=== PATIENT | female | born 1980 | race Caucasian/White ===

== ENCOUNTER 2022-11-06 08:43 | Day surgery (SDC) | payer SELFPAY ==
[2022-11-06] MEDS ORDERED: Lidocaine 1% PF 5 ML VIAL ONE (08:53)
[2022-11-06] MEDS ORDERED: Sodium Bicarbonate 2.5 MEQ/5 ML VIAL ONE (08:53)
[2022-11-06 09:32] VITALS: BP 110/60; TEMP 98.8
== END 2022-11-06 11:00 | disposition home or self-care (01) ==
LOC: ULT 08:43
PROVIDERS: ATTEND Internal Medicine
PROC: 07D53ZX Extraction of Right Axillary Lymphatic, Percutaneous Approach, Diagnostic (ICD-10-PCS; principal; 2022-11-06)
DX: C77.3 Secondary and unspecified malignant neoplasm of axilla and upper limb lymph nodes (principal); C43.59 Malignant melanoma of other part of trunk; Z87.891 Personal history of nicotine dependence
CPT/HCPCS: 38505; 88305; 88341; 88342

== ENCOUNTER 2022-11-19 18:42 | Emergency (ER) | payer SELFPAY ==
[~2022-11-19 18:42] MED LIST: Iopamidol-370 76% 500 ML 1 ML ONE
[2022-11-19 19:19] LABS: #Eosinphils 0.2 thou/uL (0.0-0.7); #Lymphocytes 1.7 thou/uL (1.20-3.40); #Monocytes 0.7 thou/uL (0.11-0.59); #Neutrophils 7.6 thou/uL (1.40-6.50); %Basophils 0.1 % (0.0-1.0); %Eosinophils 1.8 % (0.0-10.0); %Lymphocytes 16.5 % (21.0-51.0); %Monocytes 6.9 % (0.0-10.0); %Neutrophils 74.6 % (42.0-75.0); Mean Corpuscular HGB CONC 32.7 g/dL (32.0-36.0); Mean Corpuscular Hemoglobin 26.3 pg (27.0-31.0); Mean Corpuscular Volume 80.6 fl (78.0-98.0); Mean Platelet Volume 6.6 fL (7.4-10.4); Platelet Count 541 10x3/uL (130-400); RBC Distribution Width 12.3 % (11.5-14.5); Red Blood Cell (RBC) Count 3.81 mill/uL (4.20-5.40); White Blood Cell (WBC) Count 10.1 10x3/uL (4.8-10.8)
[2022-11-19 19:29] LABS: BHCG - Serum Negative (NEGATIVE); Pregs Control Background? CLEAR/WHITE (CLR/WHITE); Pregs Control Bar Appear? YES (CONTROL BAR)
[2022-11-19 19:41] LABS: ALT (SGPT) 20 U/L (8-55); AST (SGOT) 22 U/L (5-34); Albumin 3.9 g/dL (3.5-5.0); Alkaline Phosphatase 66 U/L (40-110); Anion Gap 15 mmol/L (10-20); BUN (Urea Nitrogen) 9 mg/dL (7.0-18.7); Bilirubin, Total 0.2 mg/dL (0.2-1.2); Calc. Creatinine Clearance 0 mL/min (70-130); Calcium 9.3 mg/dL (7.8-10.44); Carbon Dioxide 21 mmol/L (22-29); Chloride 105 mmol/L (98-107); Estimated GFR 105; Globulin 3.7 g/dL (2.4-3.5); Glucose 100 mg/dL (70-105); Lipase 71 U/L (8-78); Potassium 3.8 mmol/L (3.5-5.1); Protein, Total 7.6 g/dL (6.0-8.3); Sodium 137 mmol/L (136-145)
[2022-11-19 20:48] LABS: Bacteria/HPF None Seen HPF (None Seen); Bilirubin Negative (Negative); Blood, Urine 3+ (Negative); Clarity Clear (Clear); Glucose, Urine (Dipstick) Normal (Negative); Ketone, Urine Negative (Negative); Leukocyte Negative Leu/uL (Negative); Nitrite Negative (Negative); Protein, Urine (Dipstick) Negative (Neg-Trace); Specific Gravity, Urine 1.008 (1.002-1.036); Squamous Epithelial 0-3 HPF (0-3); Urobilinogen Normal mg/dL (Less than 2); WBC/HPF 0-3 HPF (0-3)
[2022-11-19] MEDS ORDERED: Morphine 4 MG/ML VIAL ONE ×2 (21:10→22:13)
[2022-11-19] MEDS ORDERED: Ondansetron PF 4 MG/2 ML Vial ONE ×2 (21:11→22:13)
== END 2022-11-19 22:44 | disposition home or self-care (01) ==
LOC: ERS 18:42
DX: M54.9 Dorsalgia, unspecified (principal)
CPT/HCPCS: 36415; 71275; 74177; 80053; 81003; 81015; 83690; 84703; 85025; 96374; 96375; 96376; J2270; J2405; Q9967

== ENCOUNTER → 2022-11-23 | Outpatient (CLI) | payer OTHER | LOC: PET 08:00 | PROVIDERS: ATTEND Internal Medicine | DX: C43.59 Malignant melanoma of other part of trunk (principal); C79.89 Secondary malignant neoplasm of other specified sites | CPT/HCPCS: 78816; A9552 ==

== ENCOUNTER 2022-12-27 06:52 | Outpatient (CLI) | payer MEDICAID | END 2022-12-27 06:53 | disposition home or self-care (01) | LOC: BICULT 06:52 | PROVIDERS: ATTEND Internal Medicine | DX: R60.0 Localized edema (principal); C43.59 Malignant melanoma of other part of trunk ==

== ENCOUNTER 2023-01-01 14:38 | Outpatient (CLI) | payer MEDICAID | END 2023-01-01 14:39 | disposition home or self-care (01) | LOC: SCSMRI 14:38 | PROVIDERS: ATTEND Internal Medicine | DX: C43.9 Malignant melanoma of skin, unspecified (principal); R41.0 Disorientation, unspecified; D49.6 Neoplasm of unspecified behavior of brain; G93.6 Cerebral edema; J32.9 Chronic sinusitis, unspecified | CPT/HCPCS: 70553 ==

== ENCOUNTER 2023-01-18 11:59 | Outpatient (CLI) | payer MEDICAID ==
[2023-01-18 13:35] LABS: #Monocytes 0.5 10x3/uL (0.0-1.1); #Neutrophils 11.7 10x3/uL (1.5-8.4); %Basophils 0.1 % (0.0-2.0); %Eosinophils 0.1 % (0.0-6.0); %Lymphocytes 9.2 % (18.0-47.0); %Monocytes 3.8 % (0.0-10.0); Hemoglobin 8.9 g/dL (12.0-15.5); Mean Corpuscular Hemoglobin 20.9 pg (27.0-33.0); Mean Corpuscular Volume 72.2 fl (81.6-98.3); Mean Platelet Volume 9.2 fl (7.4-10.4); Platelet Count 527 10x3/uL (150-450); RBC Distribution Width 15.2 % (11.5-14.5); Red Blood Cell (RBC) Count 4.25 10x6/uL (3.90-5.03); White Blood Cell (WBC) Count 13.6 10x3/uL (3.5-10.5)
[2023-01-18 13:55] LABS: Basophilic Stippling SLIGHT = 1-2 cells (100X) (None Seen); Hypochromia MARKED = >30 cells (100X) (0-5/hpf); Microcytosis SLIGHT = 6-15 cells (100X) (0-5/hpf)
[2023-01-18 13:56] LABS: Ovalocytes SLIGHT = 2-5 cells (100X) (0-1/hpf); Target Cells SLIGHT = 2-5 cells (100X) (0-1/hpf)
[2023-01-18 13:57] LABS: Platelet Clumps SLIGHT; Platelet Morphology Comment Appears Increased
[2023-01-18 13:58] LABS: Macrocytosis SLIGHT = 6-15 cells (100X) (0-5/hpf)
[2023-01-18 14:07] LABS: Anion Gap 16 mmol/L (10-20); BUN (Urea Nitrogen) 18 mg/dL (7.0-18.7); Calc. Creatinine Clearance 0 mL/min (70-130); Calcium 9.4 mg/dL (7.8-10.44); Carbon Dioxide 20 mmol/L (22-29); Chloride 104 mmol/L (98-107); Estimated GFR 100; Glucose 128 mg/dL (70-105); Potassium 4.4 mmol/L (3.5-5.1); Sodium 136 mmol/L (136-145)
== END 2023-01-18 12:00 | disposition home or self-care (01) ==
LOC: LABBT 11:59
PROVIDERS: ATTEND Specialist
DX: Z01.812 Encounter for preprocedural laboratory examination (principal); C43.9 Malignant melanoma of skin, unspecified
CPT/HCPCS: 80048; 85025

== ENCOUNTER 2023-01-22 06:27 | Day surgery (SDC) | payer MEDICAID ==
[2023-01-18 11:24] VITALS: BMI 31.5
[2023-01-22] MEDS ORDERED: Acetaminophen 500 MG TAB ONE (07:16)
[2023-01-22] MEDS ORDERED: Ketorolac Tromethamine 30 MG/ML VIAL ONE (07:16)
[2023-01-22] MEDS ORDERED: fentaNYL PF 100 MCG/2 ML SYRINGE ONE (08:09)
[2023-01-22] MEDS ORDERED: Lidocaine 1% (PF) 30 ML VIAL ONE (08:11)
[2023-01-22] MEDS ORDERED: Bupivacaine/Epinephrine 0.25% 30 ML VIAL ONE (08:11)
[2023-01-22] MEDS ORDERED: Propofol 500 MG/50 ML VIAL ONE (08:12)
[2023-01-22] MEDS ORDERED: Lidocaine 2% 6 ML SYR ONE (08:22)
[2023-01-22] MEDS ORDERED: Sodium Chloride 0.9% 100 ML ONE (08:31)
[2023-01-22] MEDS ORDERED: CEFAZOLIN 2 GM VIAL ONE (08:31)
[2023-01-22] MEDS ORDERED: PROPOFOL 200 MG/20 ML VIAL ONE (08:33)
== END 2023-01-22 10:06 | disposition home or self-care (01) ==
LOC: SDC 06:27
PROVIDERS: ATTEND Specialist
PROC: 0JH60WZ Insertion of Totally Implantable Vascular Access Device into Chest Subcutaneous Tissue and Fascia, Open Approach (ICD-10-PCS; principal; 2023-01-22)
PROC: 02HV33Z Insertion of Infusion Device into Superior Vena Cava, Percutaneous Approach (ICD-10-PCS; principal; 2023-01-22)
DX: C43.59 Malignant melanoma of other part of trunk (principal); C79.31 Secondary malignant neoplasm of brain; Z79.899 Other long term (current) drug therapy; Z88.5 Allergy status to narcotic agent
CPT/HCPCS: 36416; 71045; J1642; J1885; J2001; J2704; J3490

== ENCOUNTER → 2023-02-13 | Outpatient (CLI) | payer MEDICAID | LOC: PET 11:00 | PROVIDERS: ATTEND Internal Medicine | DX: C43.59 Malignant melanoma of other part of trunk (principal); C79.51 Secondary malignant neoplasm of bone | CPT/HCPCS: 78816; A9552 ==

== ENCOUNTER 2023-03-01 17:45 | Inpatient (IN) | payer MEDICAID, OTHER ==
[2023-03-01] MEDS ORDERED: Ondansetron PF 4 MG/2 ML Vial ONE (19:10)
[2023-03-01] MEDS ORDERED: Ondansetron ODT 4 MG TAB ONE (19:32)
[2023-03-01 20:10] LABS: Bilirubin Negative (Negative); Blood, Urine Negative (Negative); Clarity Clear (Clear); Glucose, Urine (Dipstick) Normal (Negative); Ketone, Urine Negative (Negative); Leukocyte Negative Leu/uL (Negative); Nitrite Negative (Negative); Protein, Urine (Dipstick) Negative (Neg-Trace); Specific Gravity, Urine 1.006 (1.002-1.036); Urobilinogen Normal mg/dL (Less than 2); pH, Urine 6.5 (5.0-9.0)
[2023-03-01 20:11] LABS: Specific Gravity 1.006 (1.002-1.036)
[2023-03-01 20:12] LABS: Pregnancy Test - Urine (BHCG) Negative (Negative); Pregu Control Background? CLEAR/WHITE (CLR/WHITE); Pregu Control Bar Appear? YES (CONTROL BAR)
[2023-03-01 20:31] LABS: Actual Bicarbonate (HCO3v) 24 mEq/L (22-28); Base Excess 0.8 mEq/L (-2.0 to +3.0); Calcium, Ionized (venous) 1.07 mmol/L (1.16-1.32); Chloride (VBG) 104 mmol/L (98-106); Hemoglobin (Hb) 11.1 g/dL (11.7-15.5); Sodium 138.1 mmol/L (133-146); pH (venous) 7.48 (7.32-7.43)
[2023-03-01 20:32] LABS: #Eosinphils 0.1 thou/uL (0.0-0.7); #Lymphocytes 1.7 thou/uL (1.20-3.40); #Monocytes 0.7 thou/uL (0.11-0.59); #Neutrophils 7.3 thou/uL (1.40-6.50); %Basophils 0.1 % (0.0-1.0); %Eosinophils 0.6 % (0.0-10.0); %Lymphocytes 17.7 % (21.0-51.0); %Monocytes 7.3 % (0.0-10.0); %Neutrophils 74.3 % (42.0-75.0); Hemoglobin 10.2 g/dL (12.0-16.0); Mean Corpuscular HGB CONC 30.7 g/dL (32.0-36.0); Mean Corpuscular Hemoglobin 20.9 pg (27.0-31.0); Mean Corpuscular Volume 68.2 fl (78.0-98.0); Mean Platelet Volume 9.7 fL (7.4-10.4); Platelet Count 243 10x3/uL (130-400); RBC Distribution Width 16.3 % (11.5-14.5); Red Blood Cell (RBC) Count 4.87 mill/uL (4.20-5.40); White Blood Cell (WBC) Count 9.9 10x3/uL (4.8-10.8)
[2023-03-01 20:46] LABS: INR-International Normal Ratio 1.1; Prothrombin Time 14.5 sec (12.0-14.7)
[2023-03-01 21:03] LABS: AST (SGOT) 1602 U/L (5-34); Albumin 3.7 g/dL (3.5-5.0); Alkaline Phosphatase 144 U/L (40-110); Anion Gap 14 mmol/L (10-20); BUN (Urea Nitrogen) 9 mg/dL (7.0-18.7); Bilirubin, Total 0.9 mg/dL (0.2-1.2); Calc. Creatinine Clearance 0 mL/min (70-130); Calcium 8.5 mg/dL (7.8-10.44); Carbon Dioxide 21 mmol/L (22-29); Chloride 106 mmol/L (98-107); Estimated GFR 111; Glucose 78 mg/dL (70-105); Lipase 48 U/L (8-78); Potassium 3.5 mmol/L (3.5-5.1); Protein, Total 6.7 g/dL (6.0-8.3); Sodium 137 mmol/L (136-145)
[2023-03-01 21:15] LABS: ALT (SGPT) 3900 U/L (8-55)
[2023-03-01] MEDS ORDERED: predniSONE 20 MG TAB ONE (23:09)
[2023-03-02] MEDS ORDERED: Ondansetron ODT 4 MG TAB SL PRN (00:30)
[2023-03-02] MEDS ORDERED: Ondansetron PF 4 MG/2 ML Vial IVP PRN (00:30)
[2023-03-02] MEDS: Sodium Chloride 0.9% 1,000 ML IV SCH ×2 (00:33→06:17)
[2023-03-02 01:18] VITALS: BMI 32.7
[2023-03-02] MEDS: Morphine 2 MG/ML VIAL SLOW IVP PRN ×4 (01:49→20:09)
[2023-03-02 06:24] LABS: #Lymphocytes 1.1 thou/uL (1.20-3.40); #Monocytes 0.3 thou/uL (0.11-0.59); #Neutrophils 8.6 thou/uL (1.40-6.50); %Eosinophils 0.3 % (0.0-10.0); %Lymphocytes 11.4 % (21.0-51.0); %Neutrophils 85.4 % (42.0-75.0); Hemoglobin 10.5 g/dL (12.0-16.0); Mean Corpuscular HGB CONC 31.2 g/dL (32.0-36.0); Mean Corpuscular Hemoglobin 21.6 pg (27.0-31.0); Mean Corpuscular Volume 69.3 fl (78.0-98.0); Mean Platelet Volume 9.5 fL (7.4-10.4); Platelet Count 245 10x3/uL (130-400); RBC Distribution Width 16.4 % (11.5-14.5); Red Blood Cell (RBC) Count 4.84 mill/uL (4.20-5.40)
[2023-03-02 07:04] LABS: AST (SGOT) 1469 U/L (5-34); Albumin 3.5 g/dL (3.5-5.0); Alkaline Phosphatase 164 U/L (40-110); Anion Gap 16 mmol/L (10-20); BUN (Urea Nitrogen) 10 mg/dL (7.0-18.7); Bilirubin, Total 1.3 mg/dL (0.2-1.2); Calc. Creatinine Clearance 123 mL/min (70-130); Calcium 8.5 mg/dL (7.8-10.44); Carbon Dioxide 17 mmol/L (22-29); Chloride 107 mmol/L (98-107); Estimated GFR 105; Globulin 3.1 g/dL (2.4-3.5); Glucose 179 mg/dL (70-105); Protein, Total 6.6 g/dL (6.0-8.3); Sodium 136 mmol/L (136-145)
[2023-03-02 07:18] LABS: ALT (SGPT) 3986 U/L (8-55)
[2023-03-02] MEDS: predniSONE 20 MG TAB PO SCH (09:17)
[2023-03-02] MEDS ORDERED: Iopamidol-370 76% 500 ML MDV (1 ML CHARGE) ONE (12:35)
[2023-03-02 19:28] LABS: Acetaminophen Less than 10.0 mcg/mL (10.0-30.0); Iron 25 ug/dL (50-170); Iron Binding Capacity, Total 411 mcg/dL (265-497)
[2023-03-02 19:42] LABS: Ferritin 83.92 ng/mL (10-291)
[2023-03-02 19:43] LABS: Thyroid Stimulating Hormone 0.2296 uIU/mL (0.35-4.94)
[2023-03-02 19:57] LABS: HBCM Index 0.15 S/CO (0-0.79); HBSAg Index 0.26 S/CO (0-0.99); Hep A IgM AB Non-Reactive (NonReactive); Hep A IgM S/CO 0.18 S/CO (0-0.79); Hep B Surf Ag Non-Reactive S/CO (NonReactive); Hep C IgG Ab Non-Reactive (NonReactive); Hep C Index 0.17 S/CO (0-0.79); Hepatitis B Core IgM Abs Non-Reactive (NonReactive)
[2023-03-03] MEDS ORDERED: Ondansetron PF 4 MG/2 ML Vial IVP PRN (00:35)
[2023-03-03] MEDS ORDERED: Ondansetron ODT 4 MG TAB PO PRN (00:35)
[2023-03-03 06:04] LABS: #Eosinphils 0.1 thou/uL (0.0-0.7); #Lymphocytes 2.7 thou/uL (1.20-3.40); #Monocytes 1.2 thou/uL (0.11-0.59); #Neutrophils 12.4 thou/uL (1.40-6.50); %Basophils 0.1 % (0.0-1.0); %Eosinophils 0.6 % (0.0-10.0); %Lymphocytes 16.5 % (21.0-51.0); %Monocytes 7.5 % (0.0-10.0); %Neutrophils 75.3 % (42.0-75.0); Hemoglobin 10.4 g/dL (12.0-16.0); Mean Corpuscular HGB CONC 30.6 g/dL (32.0-36.0); Mean Corpuscular Hemoglobin 21.4 pg (27.0-31.0); Mean Corpuscular Volume 69.8 fl (78.0-98.0); Mean Platelet Volume 9.7 fL (7.4-10.4); Platelet Count 269 10x3/uL (130-400); RBC Distribution Width 16.5 % (11.5-14.5); Red Blood Cell (RBC) Count 4.87 mill/uL (4.20-5.40); White Blood Cell (WBC) Count 16.5 10x3/uL (4.8-10.8)
[2023-03-03 06:24] LABS: ALT (SGPT) 3174 U/L (8-55); AST (SGOT) 711 U/L (5-34); Albumin 3.5 g/dL (3.5-5.0); Alkaline Phosphatase 174 U/L (40-110); Anion Gap 13 mmol/L (10-20); BUN (Urea Nitrogen) 12 mg/dL (7.0-18.7); Bilirubin, Total 0.8 mg/dL (0.2-1.2); Calc. Creatinine Clearance 138 mL/min (70-130); Calcium 8.8 mg/dL (7.8-10.44); Carbon Dioxide 22 mmol/L (22-29); Chloride 106 mmol/L (98-107); Estimated GFR 112; Globulin 2.9 g/dL (2.4-3.5); Glucose 107 mg/dL (70-105); Potassium 3.5 mmol/L (3.5-5.1); Protein, Total 6.4 g/dL (6.0-8.3); Sodium 137 mmol/L (136-145)
[2023-03-03] MEDS: Morphine 2 MG/ML VIAL SLOW IVP PRN ×3 (10:02→21:58)
[2023-03-03] MEDS: predniSONE 20 MG TAB PO SCH (10:02)
[2023-03-03 17:56] LABS: ANA Symphony (Qualitative) Equivocal: See Note (Negative); ANA Symphony (Quantitative) 0.7 Ratio (< 0.7 Negative); dsDNA IgG Antibody 1.2 IU/mL (<10 Negative)
[2023-03-04] MEDS: Morphine 2 MG/ML VIAL SLOW IVP PRN ×2 (04:46→09:18)
[2023-03-04 05:40] LABS: #Eosinphils 0.1 thou/uL (0.0-0.7); #Lymphocytes 2.5 thou/uL (1.20-3.40); %Basophils 0.1 % (0.0-1.0); %Eosinophils 0.6 % (0.0-10.0); %Lymphocytes 18.6 % (21.0-51.0); %Monocytes 7.3 % (0.0-10.0); %Neutrophils 73.4 % (42.0-75.0); Hemoglobin 10.1 g/dL (12.0-16.0); Mean Corpuscular HGB CONC 30.2 g/dL (32.0-36.0); Mean Corpuscular Volume 69.6 fl (78.0-98.0); Mean Platelet Volume 9.5 fL (7.4-10.4); Platelet Count 304 10x3/uL (130-400); RBC Distribution Width 16.9 % (11.5-14.5); Red Blood Cell (RBC) Count 4.78 mill/uL (4.20-5.40); White Blood Cell (WBC) Count 13.6 10x3/uL (4.8-10.8)
[2023-03-04 06:02] LABS: ALT (SGPT) 2526 U/L (8-55); AST (SGOT) 518 U/L (5-34); Albumin 3.4 g/dL (3.5-5.0); Alkaline Phosphatase 183 U/L (40-110); Anion Gap 12 mmol/L (10-20); BUN (Urea Nitrogen) 9 mg/dL (7.0-18.7); Bilirubin, Total 0.8 mg/dL (0.2-1.2); Calc. Creatinine Clearance 138 mL/min (70-130); Calcium 8.4 mg/dL (7.8-10.44); Carbon Dioxide 23 mmol/L (22-29); Chloride 104 mmol/L (98-107); Estimated GFR 112; Globulin 2.9 g/dL (2.4-3.5); Glucose 128 mg/dL (70-105); Potassium 3.4 mmol/L (3.5-5.1); Protein, Total 6.3 g/dL (6.0-8.3); Sodium 136 mmol/L (136-145)
[2023-03-04] MEDS: predniSONE 20 MG TAB PO SCH (09:17)
[2023-03-04 14:54] VITALS: BP 128/77; TEMP 98.4
[2023-03-05 10:17] LABS: Alpha-1-Antitrypsin 162 mg/dL (101-187)
[2023-03-05 16:14] LABS: Smooth Muscle Total ABS 12 Units (0-19)
== END 2023-03-04 17:02 | disposition home or self-care (01) | DRG 442 ==
LOC: ERS 17:45 → MSONC 23:24 → INTOOBSV 23:24 → OBSVTOIN 03-03 12:42
PROVIDERS: ADMIT Internal Medicine; ATTEND Internal Medicine
DX: K75.4 Autoimmune hepatitis (principal); C79.31 Secondary malignant neoplasm of brain; C43.9 Malignant melanoma of skin, unspecified; T50.Z95A Adverse effect of other vaccines and biological substances, initial encounter; D72.829 Elevated white blood cell count, unspecified; Z88.8 Allergy status to other drugs, medicaments and biological substances; Z79.899 Other long term (current) drug therapy
CPT/HCPCS: 36415; 74177; 76705; 80053; 80074; 80143; 81003; 81025; 82103; 82728; 82805; 83540; 83550; 83690; 84439; 84443; 85025; 85610; 85730; 86015; 86038; 86225; 93005; 96374; 96375; 96376; 80307; G0378; J1642; J2272; J2405; J7050; J7512; Q0162; Q9967

== ENCOUNTER 2023-04-02 11:27 | Outpatient (CLI) | payer MEDICAID, OTHER, SELFPAY ==
[~2023-04-02 11:27] MED LIST changes: -Iopamidol-370 76% 500 ML 1 ML ONE; +Magnevist 469MG/ML 20 ML VIAL ONE
== END 2023-04-02 11:28 | disposition home or self-care (01) ==
LOC: TBSIIMAG 11:27
PROVIDERS: ATTEND Radiology Radiation Oncology
DX: Z51.0 Encounter for antineoplastic radiation therapy (principal); C79.31 Secondary malignant neoplasm of brain
CPT/HCPCS: 70553; A9579

== ENCOUNTER 2023-05-22 12:31 | Outpatient (CLI) | payer OTHER | END 2023-05-22 12:32 | disposition home or self-care (01) | LOC: ULT 12:31 | PROVIDERS: ATTEND Internal Medicine | DX: Z51.11 Encounter for antineoplastic chemotherapy (principal); C43.59 Malignant melanoma of other part of trunk; I07.1 Rheumatic tricuspid insufficiency; Z79.899 Other long term (current) drug therapy | CPT/HCPCS: 93306 ==

== ENCOUNTER 2023-06-18 09:40 | Outpatient (CLI) | payer OTHER ==
[2023-06-18] MEDS ORDERED: Magnevist 469MG/ML 20 ML VIAL ONE (10:45)
== END 2023-06-18 09:41 | disposition home or self-care (01) ==
LOC: MRI 09:40
PROVIDERS: ATTEND Radiology Radiation Oncology
DX: C79.31 Secondary malignant neoplasm of brain (principal); G93.89 Other specified disorders of brain
CPT/HCPCS: 70553; A9579

== ENCOUNTER 2023-06-19 13:29 | Outpatient (CLI) | payer OTHER | END 2023-06-19 13:30 | disposition home or self-care (01) | LOC: ULT 13:29 | PROVIDERS: ATTEND Internal Medicine | DX: Z51.11 Encounter for antineoplastic chemotherapy (principal); C43.59 Malignant melanoma of other part of trunk; I08.1 Rheumatic disorders of both mitral and tricuspid valves; Z79.899 Other long term (current) drug therapy | CPT/HCPCS: 93306 ==

== ENCOUNTER 2023-07-24 08:07 | Outpatient (CLI) | payer OTHER ==
[2023-07-24] MEDS ORDERED: Iopamidol 370 76% 100 ML VIAL ONE (09:51)
== END 2023-07-24 08:08 | disposition home or self-care (01) ==
LOC: CT 08:07
PROVIDERS: ATTEND Internal Medicine
DX: C43.59 Malignant melanoma of other part of trunk (principal); C78.02 Secondary malignant neoplasm of left lung; C79.51 Secondary malignant neoplasm of bone; M89.9 Disorder of bone, unspecified
CPT/HCPCS: 71260; 74177; Q9967

== ENCOUNTER 2023-10-16 12:20 | Outpatient (CLI) | payer OTHER ==
[~2023-10-16 12:20] MED LIST changes: +Iopamidol 370 76% 100 ML VIAL ONE; -Magnevist 469MG/ML 20 ML VIAL ONE
== END 2023-10-16 12:21 | disposition home or self-care (01) ==
LOC: CT 12:20
PROVIDERS: ATTEND Internal Medicine
DX: C43.59 Malignant melanoma of other part of trunk (principal); R91.1 Solitary pulmonary nodule; K76.89 Other specified diseases of liver; E27.8 Other specified disorders of adrenal gland; M89.9 Disorder of bone, unspecified
CPT/HCPCS: 71260; 74177

== ENCOUNTER 2023-10-28 09:27 | Outpatient (CLI) | payer OTHER | END 2023-10-28 09:28 | disposition home or self-care (01) | LOC: SCSMRI 09:27 | PROVIDERS: ATTEND Radiology Radiation Oncology | DX: C79.31 Secondary malignant neoplasm of brain (principal); J32.9 Chronic sinusitis, unspecified | CPT/HCPCS: 70553 ==

== ENCOUNTER 2024-02-05 12:49 | Outpatient (CLI) | payer OTHER ==
[2024-02-05 14:48] LABS: Hematocrit 42.4 % (34.9-44.5); Hemoglobin 14.5 g/dL (12.0-15.5); Mean Corpuscular HGB CONC 34.2 g/dL (32.0-36.0); Mean Corpuscular Hemoglobin 29.7 pg (27.0-33.0); Mean Corpuscular Volume 86.7 fl (81.6-98.3); Mean Platelet Volume 9.3 fl (7.4-10.4); Platelet Count 305 10x3/uL (150-450); RBC Distribution Width 12.3 % (11.5-14.5); Red Blood Cell (RBC) Count 4.89 10x6/uL (3.90-5.03); White Blood Cell (WBC) Count 7.5 10x3/uL (3.5-10.5)
[2024-02-05 14:51] LABS: BHCG - Serum Negative (NEGATIVE); INR-International Normal Ratio 0.9; PTT 29.1 sec (22.0-33.0); Pregs Control Background? CLEAR/WHITE (CLR/WHITE); Pregs Control Bar Appear? YES (CONTROL BAR); Prothrombin Time 9.8 sec (9.5-12.1)
[2024-02-05 14:58] LABS: ALT (SGPT) 19 U/L (8-55); AST (SGOT) 17 U/L (5-34); Albumin 4.7 g/dL (3.5-5.0); Alkaline Phosphatase 71 U/L (40-110); Anion Gap 12 mmol/L (10-20); BUN (Urea Nitrogen) 10 mg/dL (7.0-18.7); Bilirubin, Direct 0.1 mg/dL (0.1-0.3); Bilirubin, Total 0.2 mg/dL (0.2-1.2); Calc. Creatinine Clearance 0 mL/min (70-130); Calcium 9.7 mg/dL (7.8-10.44); Carbon Dioxide 24 mmol/L (22-29); Chloride 108 mmol/L (98-107); Estimated GFR 97; Glucose 101 mg/dL (70-105); Potassium 3.9 mmol/L (3.5-5.1); Protein, Total 7.6 g/dL (6.0-8.3); Sodium 140 mmol/L (136-145)
== END 2024-02-05 12:50 | disposition home or self-care (01) ==
LOC: LABBT 12:49
PROVIDERS: ATTEND Student in an Organized Health Care Education/Training Program
DX: Z01.812 Encounter for preprocedural laboratory examination (principal); C78.02 Secondary malignant neoplasm of left lung
CPT/HCPCS: 80048; 80076; 84703; 85027; 85610; 85730

== ENCOUNTER 2025-06-11 14:00 | Inpatient (IN) | payer MEDICAID ==
[2025-06-14 16:38] VITALS: BMI 37.4
[2025-06-17] MEDS ORDERED: Ropivacaine 0.2% HCl/PF 20 ML ONE (08:32)
[2025-06-17] MEDS ORDERED: Ropivacaine 0.5% HCl/PF (150 MG/30 ML VIAL) ONE (08:32)
[2025-06-17] MEDS ORDERED: Ondansetron PF 4 MG/2 ML Vial ONE ×2 (08:32→10:35)
[2025-06-17] MEDS ORDERED: CEFAZOLIN 2 GM VIAL ONE (09:12)
[2025-06-17] MEDS ORDERED: PROPOFOL 20 ML ONE (09:26)
[2025-06-17] MEDS ORDERED: fentaNYL PF 100 MCG/2 ML SYRINGE ONE ×4 (09:26→13:01)
[2025-06-17] MEDS ORDERED: PHENYLEPHRINE-NS 100 MCG/ML 10 ML SYRINGE ONE (09:53)
[2025-06-17] MEDS ORDERED: Rocuronium Bromide 10 MG/ML (10ML VIAL) ONE (10:09)
[2025-06-17] MEDS ORDERED: Glycopyrrolate 0.2 MG/ML 5 ML SYRINGE ONE (10:57)
[2025-06-17] MEDS ORDERED: NEOSTIGMINE 3 MG/3 ML SYRINGE ONE (10:57)
[2025-06-17] MEDS ORDERED: Bisacodyl 10 MG SUPP PR PRN (11:31)
[2025-06-17] MEDS ORDERED: Ondansetron PF 4 MG/2 ML Vial SLOW IVP PRN (11:31)
[2025-06-17] MEDS ORDERED: DIFLUPREDNATE L EYE SCH (11:31)
[2025-06-17] MEDS ORDERED: PREDNISOLONE 5 MG PO PRN (11:31)
[2025-06-17] MEDS ORDERED: DIFLUPREDNATE R EYE SCH ×2 (11:31→21:00)
[2025-06-17] MEDS ORDERED: Communication Order-Pharmacy FS SCH (11:31)
[2025-06-17] MEDS ORDERED: FLUTICASONE PROPIONATE NS SCH (11:31)
[2025-06-17] MEDS ORDERED: Non-Formulary Item 1 EACH (Oxycodone Hcl/Acetaminophen [Oxycodone-Acetaminophen 10-325] 1 PO PRN (11:31)
[2025-06-17] MEDS ORDERED: Non-Formulary Item 1 EACH (Fentanyl [Fentanyl] 1 EACH Patch.Td72) TD SCH (11:31)
[2025-06-17] MEDS ORDERED: Non-Formulary Item 1 EACH (Zolpidem Tartrate [Ambien] 10 MG Tablet) PO PRN (11:31)
[2025-06-17] MEDS ORDERED: Ketorolac Tromethamine 30 MG (1 mL) VIAL ONE (11:54)
[2025-06-17] MEDS ORDERED: prednisoLONE 10 MG ODT TAB PO PRN (12:31)
[2025-06-17] MEDS ORDERED: Apixaban 2.5 MG TAB PO SCH ×2 (14:30→21:00)
[2025-06-17] MEDS: AFRIN NASAL MIST 15 ML BOT NS SCH (17:03)
[2025-06-17] MEDS: oxyCODONE/Acetaminophen 5 mg/325 mg Tablet PO PRN (17:26)
[2025-06-17] MEDS: Ketorolac Tromethamine 30 MG (1 mL) VIAL IVP SCH (17:26)
[2025-06-17] MEDS: Pantoprazole 40 MG DR.TAB PO SCH (17:28)
[2025-06-17] MEDS: DORZOLAMIDE OP SCH (18:31)
[2025-06-17] MEDS: TIMOLOL OP SCH (18:31)
[2025-06-17] MEDS: Apixaban 2.5 MG TAB PO SCH (18:31)
[2025-06-17] MEDS: [UNRECOGNIZED DRUG - OTHER] OP SCH (18:31)
[2025-06-17] MEDS: DorzolamidE/Timolol 2%/0.5% Ophth Soln 10 ml Bottle EA EYE SCH (21:42)
[2025-06-18 05:50] LABS: #Basophils Less than 0.03 10x3/uL (0.0-0.2); #Eosinophils 0.10 10x3/uL (0.0-0.7); #Monocytes 1.19 10x3/uL (0.11-0.59); #Neutrophils 7.97 10x3/uL (1.40-6.50); %Basophils 0.2 % (0.0-1.0); %Eosinophils 0.9 % (0.0-10.0); %Lymphocytes 14.9 % (21.0-51.0); %Monocytes 10.9 % (0.0-10.0); %Neutrophils 72.6 % (42.0-75.0); Hematocrit 24.8 % (36.0-47.0); Hemoglobin 7.9 g/dL (12.0-16.0); Mean Corpuscular Hemoglobin 27.3 pg (27.0-31.0); Mean Corpuscular Volume 85.8 fL (78.0-98.0); Platelet Count 290 10x3/uL (130-400); Red Blood Cell (RBC) Count 2.89 mill/uL (4.20-5.40); White Blood Cell (WBC) Count 10.96 10x3/uL (4.8-10.8)
[2025-06-18 06:08] LABS: ALT (SGPT) 10 U/L (Less than 34); AST (SGOT) 14 U/L (11-34); Albumin 2.9 g/dL (3.1-4.5); Alkaline Phosphatase 56 U/L (40-110); Anion Gap 10 mmol/L (10-20); BUN (Urea Nitrogen) 7 mg/dL (7.0-18.7); Bilirubin, Total 0.1 mg/dL (0.3-1.2); Calc. Creatinine Clearance 183 mL/min (70-130); Calcium 7.9 mg/dL (7.8-10.44); Carbon Dioxide 21 mmol/L (22-29); Chloride 109 mmol/L (98-107); Globulin 2.7 g/dL (2.4-3.5); Glucose 105 mg/dL (70-105); Potassium 3.3 mmol/L (3.5-5.1); Sodium 137 mmol/L (136-145)
[2025-06-18] MEDS: Apixaban 2.5 MG TAB PO SCH (09:06)
[2025-06-18 11:38] VITALS: BMI 37.4
[2025-06-18] MEDS: Melatonin 3 MG TAB PO SCH (21:12)
[2025-06-19 11:02] LABS: #Basophils Less than 0.03 10x3/uL (0.0-0.2); #Eosinophils 0.17 10x3/uL (0.0-0.7); #Monocytes 1.06 10x3/uL (0.11-0.59); #Neutrophils 6.00 10x3/uL (1.40-6.50); %Basophils 0.2 % (0.0-1.0); %Eosinophils 2.0 % (0.0-10.0); %Lymphocytes 14.8 % (21.0-51.0); %Monocytes 12.4 % (0.0-10.0); %Neutrophils 70.2 % (42.0-75.0); Hematocrit 22.3 % (36.0-47.0); Hemoglobin 7.0 g/dL (12.0-16.0); Mean Corpuscular Hemoglobin 27.8 pg (27.0-31.0); Mean Corpuscular Volume 88.5 fL (78.0-98.0); Platelet Count 258 10x3/uL (130-400); Red Blood Cell (RBC) Count 2.52 mill/uL (4.20-5.40); White Blood Cell (WBC) Count 8.54 10x3/uL (4.8-10.8)
[2025-06-19 11:18] LABS: Anion Gap 10 mmol/L (10-20); BUN (Urea Nitrogen) 6 mg/dL (7.0-18.7); Calc. Creatinine Clearance 190 mL/min (70-130); Calcium 7.7 mg/dL (7.8-10.44); Carbon Dioxide 21 mmol/L (22-29); Chloride 111 mmol/L (98-107); Glucose 82 mg/dL (70-105); Potassium 3.1 mmol/L (3.5-5.1); Sodium 139 mmol/L (136-145)
[2025-06-19 13:19] LABS: Bacteria/HPF None Seen HPF (None Seen); Glucose, Urine (Dipstick) Normal (Negative); Leukocyte Negative Leu/uL (Negative); Protein, Urine (Dipstick) Negative (Neg-Trace); RBC/HPF 0-3 HPF (0-3); Specific Gravity, Urine 1.006 (1.002-1.036); WBC/HPF None Seen HPF (0-3)
[2025-06-19] MEDS: TETANUS, DIPHTHERIA TOX,ADULT (TDVAX) 0.5 ML VIAL IM ONE (20:45)
[2025-06-19] MEDS: Acetaminophen 325 MG TAB PO PRN (22:00)
[2025-06-20 07:37] VITALS: TEMP 98.2
[2025-06-20 11:36] VITALS: BP 136/82
== END 2025-06-20 15:01 | disposition home or self-care (01) | DRG 481 ==
LOC: EDSTATUS 06-16 16:30 → SURG A 06-17 06:30 → SURG B 06-17 15:28
PROVIDERS: ADMIT Orthopaedic Surgery; ATTEND Orthopaedic Surgery
PROC: 079T3ZX Drainage of Bone Marrow, Percutaneous Approach, Diagnostic (ICD-10-PCS; principal; 2025-06-17)
PROC: 0QS604Z Reposition Right Upper Femur with Internal Fixation Device, Open Approach (ICD-10-PCS; 2025-06-17)
DX: C79.51 Secondary malignant neoplasm of bone (principal); M84.551A Pathological fracture in neoplastic disease, right femur, initial encounter for fracture; C43.9 Malignant melanoma of skin, unspecified; K21.9 Gastro-esophageal reflux disease without esophagitis; F31.9 Bipolar disorder, unspecified; F41.9 Anxiety disorder, unspecified; Z88.8 Allergy status to other drugs, medicaments and biological substances; Z91.011 Allergy to milk products; Z98.890 Other specified postprocedural states; Z90.2 Acquired absence of lung [part of]; Z79.01 Long term (current) use of anticoagulants; Z97.3 Presence of spectacles and contact lenses
CPT/HCPCS: 36415; 80048; 80053; 81001; 85025; 86850; 86900; 86901; 87086; 88305; C1713; J1100; J1885; J2250; J2405; J2704; J2795; J3010; Q0169

== ENCOUNTER 2025-06-21 14:18 | Emergency (ER) | payer MEDICAID ==
[2025-06-21 15:04] LABS: #Basophils Less than 0.03 10x3/uL (0.0-0.2); #Eosinophils 0.20 10x3/uL (0.0-0.7); #Monocytes 0.64 10x3/uL (0.11-0.59); #Neutrophils 5.93 10x3/uL (1.40-6.50); %Basophils 0.1 % (0.0-1.0); %Eosinophils 2.6 % (0.0-10.0); %Lymphocytes 13.0 % (21.0-51.0); %Monocytes 8.2 % (0.0-10.0); %Neutrophils 75.6 % (42.0-75.0); Hematocrit 27.4 % (36.0-47.0); Hemoglobin 8.8 g/dL (12.0-16.0); Mean Corpuscular Hemoglobin 27.3 pg (27.0-31.0); Mean Corpuscular Volume 85.1 fL (78.0-98.0); Platelet Count 416 10x3/uL (130-400); Red Blood Cell (RBC) Count 3.22 mill/uL (4.20-5.40); White Blood Cell (WBC) Count 7.84 10x3/uL (4.8-10.8)
[2025-06-21 15:26] LABS: ALT (SGPT) 9 U/L (Less than 34); AST (SGOT) 20 U/L (11-34); Albumin 3.6 g/dL (3.1-4.5); Alkaline Phosphatase 73 U/L (40-110); Anion Gap 15 mmol/L (10-20); BUN (Urea Nitrogen) 9 mg/dL (7.0-18.7); Bilirubin, Total 0.2 mg/dL (0.3-1.2); Calc. Creatinine Clearance 0 mL/min (70-130); Calcium 9.2 mg/dL (7.8-10.44); Carbon Dioxide 23 mmol/L (22-29); Chloride 104 mmol/L (98-107); Globulin 3.7 g/dL (2.4-3.5); Glucose 103 mg/dL (70-105); Potassium 3.6 mmol/L (3.5-5.1); Sodium 138 mmol/L (136-145)
[2025-06-21] MEDS ORDERED: diphenhydrAMINE 50 MG/ML VIAL ONE (16:07)
[2025-06-21] MEDS ORDERED: Metoclopramide HCl 10 MG (2 mL) VIAL ONE (16:07)
[2025-06-21 17:05] LABS: Bacteria/HPF None Seen HPF (None Seen); CAUTI Indications for Culture Pelvic or flank pain; Glucose, Urine (Dipstick) Normal (Negative); Leukocyte Negative Leu/uL (Negative); Protein, Urine (Dipstick) Negative (Neg-Trace); RBC/HPF 0-3 HPF (0-3); Specific Gravity, Urine 1.004 (1.002-1.036); WBC/HPF None Seen HPF (0-3)
[2025-06-21 17:08] LABS: Urine Culture Reflex No No
== END 2025-06-21 18:08 | disposition home or self-care (01) ==
LOC: ERS 14:18
DX: R53.1 Weakness (principal); C43.9 Malignant melanoma of skin, unspecified; R51.9 Headache, unspecified; Z48.3 Aftercare following surgery for neoplasm
CPT/HCPCS: 36415; 80053; 81001; 85025; 86850; 86900; 86901; 96374; 96375; J1200; J2765